=== PATIENT | male | born 1940 | race Caucasian/White ===

== ENCOUNTER 2017-03-14 14:15 | Outpatient (RCR) | payer MEDICARE, OTHER | END 2017-04-02 | disposition home or self-care (01) | LOC: PTY 14:15 | DX: R26.89 Other abnormalities of gait and mobility (principal); Z98.1 Arthrodesis status | CPT/HCPCS: 97110; 97162; G8978; G8979 ==

== ENCOUNTER 2017-05-01 08:46 | Outpatient (RCR) | payer MEDICARE, OTHER | END 2017-05-03 | disposition home or self-care (01) | LOC: PTY 08:46 | DX: R26.89 Other abnormalities of gait and mobility (principal); Z98.1 Arthrodesis status ==

== ENCOUNTER 2017-05-23 09:56 | Outpatient (RCR) | payer MEDICARE, OTHER | END 2017-06-02 | disposition home or self-care (01) | LOC: PTY 09:56 | DX: R26.89 Other abnormalities of gait and mobility (principal); Z98.1 Arthrodesis status | CPT/HCPCS: 97110; G8979; G8980 ==